=== PATIENT | female | born 1980 | race Caucasian/White ===

== ENCOUNTER 2017-02-17 21:11 | Emergency (ER) | payer OTHER ==
[~2017-02-17] VITALS: Ht 160 cm; Wt 99.8 kg
[~2017-02-17 21:11] MED LIST: AFRIN30 ML NASB; AMOXICILLIN875 M1 PO; AURALGAN 14 ML14 ML OTIC; AZITHROMYCIN250 MG PO; BENTYL20 MG PO; BLM PO; DELTASONE20 MG PO; HEPATITIS A VACCINE PO; HEPATITIS B VACCINE PO; IBUPROFEN800 M1 PO; LEVSIN0.125 M1 PO; MOTRIN 600 MG600 MG PO; NAPROXEN375 M2 PO; NAPROXEN500 MG PO; NASONEX0.05 MG/Ac; PEPCID 20MG TAB20 MG PO; PREDNISONE 20MG20 MG PO; PREDNISONE20 M1 PO; RANITIDINE HYD150 MG PO; REGLAN10 MG PO; TESSALON PERLE100 M1 PO; VITAMIN D250000 UNIT PO; XOPENEX HFA15 GM INH; ZOFRAN ODT4 MG PO; ZOFRAN4 M2 PO; [UNRECOGNIZED DRUG - OTHER] PO
--- NOTE | 2017-02-17 22:29 | ED GENERAL ADULT ---
History of Present Illness General Chief Complaint: Animal/Insect Bite Stated Complaint: "LT FOOT BIT BY SOMTHING" Source: patient Exam Limitations: no limitations Vital Signs & Intake/Output Vital Signs & Intake/Output Vital Signs Date Time Temp Pulse Resp B/P B/P Pulse O2 O2 Flow FiO2 Mean Ox Delivery Rate 02/17 2130 98.0 75 18 118/85 96 Room Air Allergies Coded Allergies: hydrocodone (Severe, TACHYCARDIA 07/01/16) hydromorphone (Severe, TACHYCARDIA 07/01/16) albuterol (Intermediate, PROLONGED TACHYCARDIA 07/01/16) meperidine (From DEMEROL) (ALMOST HAD A STROKE 07/01/16) morphine (ALMOST HAD A STROKE 07/01/16) Reconcile Medications Amoxicillin 875 MG TABLET 1 TAB PO BID sinusitis Benzonatate (Tessalon Perle) 100 MG CAPSULE 1 CAP PO TID bronchitis Ergocalciferol (Vitamin D2) (Vitamin D2) 50,000 UNIT CAPSULE 1 CAP PO QTHURS SUPPLEMENT (Reported) Hydrocortisone (Ala-Balaji) 2.5 % CREAM..G. 1 MEAGHAN TOP TID PRN ITCHING 5 DAYS MAX Hyoscyamine (Levsin) 0.125 MG TABLET 1-2 TAB PO Q6P PRN ABDOMINAL CRAMPS Ibuprofen 800 MG TABLET 1 TAB PO TID PRN PAIN TAKE WITH FOOD Levalbuterol Tartrate (Xopenex Hfa) 15 GM HFA.AER.AD 2 PUF INH Q4-6 PRN PRN ASTHMA Naproxen 375 MG TABLET 1 TAB PO PRN PAIN (Reported) with food Naproxen 375 MG TABLET 1 TAB PO BID PRN PAIN with food Ondansetron HCl (Zofran) 4 MG TABLET 1 TAB PO Q6 PRN NAUSEA/VOMITING Oxymetazoline HCl (Afrin) 0.05 % SPRAY 2 SPRAY NASB BID sinusitis Prednisone (Deltasone) 20 MG TABLET 2 TAB PO DAILY ASTHMA Prednisone 20 MG TABLET 1 TAB PO BID sinusitis Triage Note: PT TO ED C/O BUG BITE TO LEFT FOOT. FIRST NOTICED 2 DAYS AGO, SELLING WORSE TODAY. PMH OF ANXIETY "NOW I'M HAVING CHEST PAINS" Triage Nurses Notes Reviewed? yes Onset: Abrupt Duration: day(s): : No Patient currently breastfeeds: No HPI: 37 yo woman with lesion noted on left foot 3 days ago, noticing that it is getting a little more itchy and red. She notes that it does not hurt, is not streaking. She has no pain or tenderness. She notes mild swelling around the ankle. She shares that she believes she was bit by a spider. She has no fever, chills. She is otherwise well. Past History Travel History Traveled to [place] past 21 day No Medical History Any Pertinent Medical History? see below for history Neurological: NONE EENT: NONE Cardiovascular: hyperlipidemia, HIGH TRIGLYCERIDES Respiratory: asthma Gastrointestinal: NONE Hepatic: NONE Renal: NONE Musculoskeletal: chronic back pain, FLATTENED DISK Psychiatric: anxiety, PANIC ATTACKS Endocrine: NONE Blood Disorders: NONE Cancer(s): NONE RESULTS TECHNICIAN/Reproductive: OVARIAN CYST Other Medical Hx: Obesity Surgical History Surgical History: Psychosocial History What is your primary language Nepali Tobacco Use: Current Daily Use Daily Tobacco Use Amount/Type: => 5 Cigarettes daily ETOH Use: denies use Illicit Drug Use: denies illicit drug use Family History Hx Contributory? No Review of Systems Review of Systems Constitutional: Reports: no symptoms. EENTM: Reports: no symptoms. Respiratory: Reports: no symptoms. Cardiovascular: Reports: no symptoms. GI: Reports: no symptoms. Genitourinary: Reports: no symptoms. Musculoskeletal: Reports: no symptoms. Skin: Reports: no symptoms. Neurological/Psychological: Reports: no symptoms. Hematologic/Endocrine: Reports: no symptoms. Immunologic/Allergic: Reports: no symptoms. All Other Systems: Reviewed and Negative Physical Exam Physical Exam General Appearance: well developed/nourished, mild distress Head: atraumatic, normal appearance Eyes: Bilateral: normal appearance. Ears, Nose, Throat: normal ENT inspection Neck: normal inspection, supple, full range of motion Respiratory: normal breath sounds Cardiovascular: regular rate/rhythm Gastrointestinal: normal bowel sounds, soft, non-tender, no organomegaly Back: normal inspection, normal range of motion Extremities: normal capillary refill, normal range of motion, left foot with a 3 cm elliptical area of redness, pruritis, non tender w/o streaking. minimal edema around ankle. Core Measures ACS in differential dx? No CVA/TIA Diagnosis: No Severe Sepsis Present: No Septic Shock Present: No Progress Differential Diagnoses I considered the following diagnoses in my evaluation of the patient: insect bite, inflammation, cellulitis vs other. Plan of Care: Orders Procedure Date/time Status EKG 02/17 2133 Active Initial ED EKG: normal axis, normal intervals, normal p-waves, normal QRS complex, normal sinus rhythm Departure Departure Disposition: HOME OR SELF CARE Condition: Stable Clinical Impression Primary Impression: Insect bite Secondary Impressions: Swelling Referrals: HAL MONAHAN (PCP/Family) Departure Forms: Customer Survey General Discharge Information Prescriptions: Current Visit Scripts Hydrocortisone (Ala-Balaji) 1 MEAGHAN TOP TID PRN ITCHING #1 TUBE 5 DAYS MAX Critical Care Note Critical Care Note Critical Care Time: non-applicable
[2017-02-17] MEDS ORDERED: ALA-CORT30 GM TOP (22:47)
[2017-02-17 22:58] VITALS: BP 120/84
== END 2017-02-17 22:58 ==
LOC: ERH 21:11
DX: S90.862A Insect bite (nonvenomous), left foot, initial encounter (principal); M79.89 Other specified soft tissue disorders; W57.XXXA Bitten or stung by nonvenomous insect and other nonvenomous arthropods, initial encounter; Y93.9 Activity, unspecified; Y92.9 Unspecified place or not applicable
CPT/HCPCS: 93005; 93010

== ENCOUNTER 2017-09-15 03:30 | Emergency (ER) | payer OTHER ==
[~2017-09-15 03:30] MED LIST changes: +ALA-CORT30 GM TOP
== END 2017-09-15 04:00 | disposition admitted as inpatient to this hospital (09) ==
LOC: ERH 03:30
DX: F41.0 Panic disorder [episodic paroxysmal anxiety] (principal)